=== PATIENT | female | born 1975 | race Caucasian/White ===

== ENCOUNTER 2017-10-15 11:32 | Emergency (ER) | payer OTHER ==
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
[2017-10-15 15:11] LABS: HCG Qualitative,Urine Negative (Negative)
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
[2017-10-15] MEDS ORDERED: TYLENOL PO ONE (17:55)
[2017-10-15] MEDS ORDERED: TYLENOL ONE (17:56)
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
[2017-10-15 19:24] VITALS: BP 133/87
== END 2017-10-15 19:25 | disposition home or self-care (01) ==
LOC: ED 11:32
DX: M79.1 Myalgia (principal); Z90.49 Acquired absence of other specified parts of digestive tract; V89.2XXA Person injured in unspecified motor-vehicle accident, traffic, initial encounter; Y93.89 Activity, other specified; Y92.89 Other specified places as the place of occurrence of the external cause; Y99.8 Other external cause status
CPT/HCPCS: 70450; 71046; 72100; 72125; 81025